=== PATIENT | female | born 1950 | race Caucasian/White ===

== ENCOUNTER → 2016-11-06 | Outpatient (CLI) | payer BC | END | disposition home or self-care (01) | LOC: CFH 15:15 | PROVIDERS: ATTEND Physician Assistant | DX: R05 Cough (principal); E11.9 Type 2 diabetes mellitus without complications | CPT/HCPCS: 71020 ==

== ENCOUNTER → 2017-10-14 | Outpatient (CLI) | payer BC | END | disposition home or self-care (01) | LOC: RAD 15:13 | PROVIDERS: ATTEND Physician Assistant | DX: N20.0 Calculus of kidney (principal); N94.89 Other specified conditions associated with female genital organs and menstrual cycle; N28.1 Cyst of kidney, acquired | CPT/HCPCS: 74176 ==